=== PATIENT | male | born 1940 | race Caucasian/White ===

== ENCOUNTER → 2020-06-12 | Outpatient (CLI) | payer MEDICARE ==
[~2020-06-12] MED LIST: ASPIRIN81 MG PO; CEFUROXIME250 MG PO; COLACE 100MG C100 MG PO; COZAAR50 MG PO; ELIQUIS 5 MG TAB5 MG PO; ELIQUIS5 MG PO; FLOMAX 0.4 MG0.4 MG PO; LEVAQUIN500 MG PO; LISINOPRIL2.5 MG PO; PRAVASTATIN SOD10 MG PO; RYTHMOL SR225 MG PO; SYNTHROID 125125 MCG PO; TYLENOL WITH C1 EACH PO; ZOLOFT100 MG PO
== END ==
LOC: KOH-I 16:22
DX: R05 Cough (principal); R06.00 Dyspnea, unspecified; J98.11 Atelectasis
CPT/HCPCS: 71046

== ENCOUNTER 2020-06-27 15:52 | Emergency (ER) | payer MEDICARE ==
[2020-06-27 16:48] LABS: HEMOGLOBIN 17.2 gm/dl (14.0-17.5); RED BLOOD COUNT 4.86 M/UL (4.20-5.50); WHITE BLOOD COUNT 12.2 K/UL (4.5-11.0)
[2020-06-27 17:12] LABS: BUN/CREATININE RATIO 17 (0-10)
== END 2020-06-27 22:30 | disposition home or self-care (01) ==
LOC: ER1 15:52
PROVIDERS: Emergency Medicine
DX: I20.8 Other forms of angina pectoris (principal); I10 Essential (primary) hypertension; Z87.891 Personal history of nicotine dependence; I48.91 Unspecified atrial fibrillation; Z20.822 Contact with and (suspected) exposure to COVID-19
CPT/HCPCS: 80053; 82550; 82553; 83690; 83735; 83874; 84100; 84484; 85025; 85610; 85730; 93005; 99284; Q9967; U0002

== ENCOUNTER → 2020-10-18 | Outpatient (CLI) | payer MEDICARE | LOC: HEART 5 10-16 09:00 | DX: R07.9 Chest pain, unspecified (principal); R94.39 Abnormal result of other cardiovascular function study | CPT/HCPCS: 78452; A9502; J2785 ==

== ENCOUNTER 2021-04-19 11:15 | Inpatient (IN) | payer MEDICARE ==
[~2021-04-19] VITALS: Ht 182.9 cm; Wt 117.0 kg
[~2021-04-19 11:15] MED LIST changes: -SYNTHROID 125125 MCG PO; +SYNTHROID150 MCG PO
[2021-04-19 12:08] LABS: HEMOGLOBIN 16.5 gm/dl (14.0-17.5); RED BLOOD COUNT 5.02 M/UL (4.20-5.50); WHITE BLOOD COUNT 11.3 K/UL (4.5-11.0)
[2021-04-19 12:36] LABS: BUN/CREATININE RATIO 14 (0-10)
[2021-04-19] MEDS ORDERED: CRESTOR40 MG PO (16:51)
[2021-04-19] MEDS ORDERED: CYCLOBENZAPRINE5 MG PO (16:51)
[2021-04-19] MEDS ORDERED: RELIEF FACTOR PO (16:53)
[2021-04-20 01:56] LABS: RED BLOOD COUNT 4.62 M/UL (4.20-5.50); WHITE BLOOD COUNT 11.7 K/UL (4.5-11.0)
[2021-04-20 02:26] LABS: BUN/CREATININE RATIO 14 (0-10)
[2021-04-21 05:43] LABS: HEMOGLOBIN 15.2 gm/dl (14.0-17.5); RED BLOOD COUNT 4.73 M/UL (4.20-5.50)
[2021-04-21 05:46] LABS: WHITE BLOOD COUNT 8.5 K/UL (4.5-11.0)
[2021-04-21 06:15] LABS: BUN/CREATININE RATIO 14 (0-10)
[2021-04-22 07:02] LABS: BUN/CREATININE RATIO 15 (0-10)
[2021-04-22] MEDS ORDERED: FLORINEF 0.1 M0.1 MG PO (15:20)
== END 2021-04-22 17:14 | disposition home or self-care (01) | DRG 274 ==
LOC: ER1 11:15 → CCU 18:23
PROVIDERS: Emergency Medicine; Physician Assistant; ADMIT Internal Medicine
PROC: B24BZZZ Ultrasonography of Heart with Aorta (ICD-10-PCS; 2021-04-19)
PROC: 4A027FZ Measurement of Cardiac Rhythm, Via Natural or Artificial Opening (ICD-10-PCS; principal; 2021-04-22)
PROC: 4A0274Z Measurement of Cardiac Electrical Activity, Via Natural or Artificial Opening (ICD-10-PCS; 2021-04-22)
DX: I48.0 Paroxysmal atrial fibrillation (principal); Z20.822 Contact with and (suspected) exposure to COVID-19; I10 Essential (primary) hypertension; E66.01 Morbid (severe) obesity due to excess calories; E03.9 Hypothyroidism, unspecified; F10.10 Alcohol abuse, uncomplicated; N40.0 Benign prostatic hyperplasia without lower urinary tract symptoms; I44.0 Atrioventricular block, first degree; E78.5 Hyperlipidemia, unspecified; I49.3 Ventricular premature depolarization; M17.0 Bilateral primary osteoarthritis of knee; I07.1 Rheumatic tricuspid insufficiency; Z86.711 Personal history of pulmonary embolism; Z79.01 Long term (current) use of anticoagulants; Z87.891 Personal history of nicotine dependence; Z95.0 Presence of cardiac pacemaker; Z82.0 Family history of epilepsy and other diseases of the nervous system; Z68.35 Body mass index [BMI] 35.0-35.9, adult
CPT/HCPCS: ECHO; 36415; 36600; 70450; 71045; 80048; 80053; 82550; 82553; 82803; 83605; 83690; 83735; 83880; 84100; 84439; 84443; 84484; 85025; 85610; 85730; 87040; 93005; 93270; 93306; 93620; 93623; 96374; 99152; 99153; 99285; C1730; C1766; J0461; J1644; J2250; J2405; J3010; J3370; J7040; J7050; Q9967; U0002

== ENCOUNTER 2021-04-23 12:19 | Emergency (ER) | payer MEDICARE ==
[~2021-04-23 12:19] MED LIST changes: +CRESTOR40 MG PO; +CYCLOBENZAPRINE5 MG PO; +FLORINEF 0.1 M0.1 MG PO; +RELIEF FACTOR PO
[2021-04-23 14:14] LABS: HEMOGLOBIN 16.9 gm/dl (14.0-17.5); RED BLOOD COUNT 5.15 M/UL (4.20-5.50)
[2021-04-23 14:16] LABS: WHITE BLOOD COUNT 11.6 K/UL (4.5-11.0)
[2021-04-23 14:40] LABS: BUN/CREATININE RATIO 19 (0-10)
== END 2021-04-23 16:30 | disposition home or self-care (01) ==
LOC: ER1 12:19
PROVIDERS: Emergency Medicine
DX: R55 Syncope and collapse (principal); I10 Essential (primary) hypertension; E78.5 Hyperlipidemia, unspecified; Z86.711 Personal history of pulmonary embolism
CPT/HCPCS: 71045; 80053; 82550; 82553; 83690; 83735; 83874; 84100; 84484; 85025; 85610; 85730; 93005; 99284

== ENCOUNTER → 2021-05-01 | Outpatient (CLI) | payer MEDICARE | LOC: CATH 04-29 09:08 → EDSTATUS 10:00 | DX: Z20.822 Contact with and (suspected) exposure to COVID-19 (principal); R55 Syncope and collapse | CPT/HCPCS: U0003 ==

== ENCOUNTER → 2021-08-14 | Outpatient (CLI) | payer MEDICARE | LOC: HEART 5 10:44 | DX: R06.02 Shortness of breath (principal) | CPT/HCPCS: 71046; 94060; 94729 ==

== ENCOUNTER 2021-10-11 11:47 | Inpatient (IN) | payer MEDICARE ==
[~2021-10-11] VITALS: Ht 182.9 cm; Wt 116.6 kg
[2021-10-11 12:12] LABS: HEMOGLOBIN 14.3 gm/dl (14.0-17.5); RED BLOOD COUNT 4.58 M/UL (4.20-5.50)
[2021-10-11 12:37] LABS: BUN/CREATININE RATIO 14 (0-10)
[2021-10-11] MEDS ORDERED: FLUDROCORTISON0.1 MG PO (13:50)
[2021-10-11] MEDS ORDERED: ELIQUIS5 MG PO (13:50)
[2021-10-11] MEDS ORDERED: KENALOG OINT 0.15 GM TOP (13:51)
[2021-10-11] MEDS ORDERED: DOXEPIN HCL25 MG PO (13:51)
[2021-10-11] MEDS ORDERED: FUROSEMIDE20 MG PO (13:52)
[2021-10-11] MEDS ORDERED: SOTALOL80 MG PO (13:52)
[2021-10-11] MEDS ORDERED: NUVIGIL200 MG PO (13:52)
[2021-10-11] MEDS ORDERED: TYLENOL EXTRA500 MG PO (13:52)
--- NOTE | 2021-10-11 16:13 | NUR ---
ATTEMPTED TO REACH DR. LYNNE REGARDING PATIENTS ADMISSION AND HEART RATE 30'S OFFICE STAFF STATED SHE WAS IN ROOM WITH A PATIENT AND WOULD CALL BACK. ELAINE WAS CALLED TO SPEAK TO REGARDING PATIENT AND STATES PATIENT SHOULD BE MOVED TO ICU. REPORT CALLED TO DAVID RENEE AND PATIENT WAS MOVED TO 2119 AT 1610.
[2021-10-12 06:39] LABS: HEMOGLOBIN 13.5 gm/dl (14.0-17.5); RED BLOOD COUNT 4.34 M/UL (4.20-5.50)
[2021-10-12 07:05] LABS: BUN/CREATININE RATIO 13 (0-10)
[2021-10-13 05:02] LABS: WHITE BLOOD COUNT 9.7 K/UL (4.5-11.0)
[2021-10-13 05:05] LABS: HEMOGLOBIN 15.5 gm/dl (14.0-17.5)
[2021-10-13 13:26] LABS: BUN/CREATININE RATIO 11 (0-10)
[2021-10-14 04:48] LABS: HEMOGLOBIN 15.3 gm/dl (14.0-17.5); RED BLOOD COUNT 4.98 M/UL (4.20-5.50); WHITE BLOOD COUNT 10.6 K/UL (4.5-11.0)
[2021-10-14 05:26] LABS: BUN/CREATININE RATIO 13 (0-10)
[2021-10-14] MEDS ORDERED: CLEOCIN HCL300 MG PO (10:34)
[2021-10-14] MEDS ORDERED: LEVOFLOXACIN500 MG PO (10:34)
[2021-10-15 05:06] LABS: HEMOGLOBIN 14.9 gm/dl (14.0-17.5); RED BLOOD COUNT 4.77 M/UL (4.20-5.50); WHITE BLOOD COUNT 12.3 K/UL (4.5-11.0)
[2021-10-15 05:14] LABS: BUN/CREATININE RATIO 16 (0-10)
[2021-10-17 12:50] LABS: HEMOGLOBIN 14.7 gm/dl (14.0-17.5); RED BLOOD COUNT 4.78 M/UL (4.20-5.50)
[2021-10-17 12:52] LABS: WHITE BLOOD COUNT 8.9 K/UL (4.5-11.0)
[2021-10-17 13:20] LABS: BUN/CREATININE RATIO 23 (0-10)
[2021-10-18] MEDS ORDERED: HYDROCODON-ACE1 EAC4 PO (10:50)
[2021-10-18] MEDS ORDERED: NUVIGIL200 MG PO (10:50)
--- NOTE | 2021-10-18 11:28 | NUR ---
REPORT CALLED TO MANDEEP AT [facility] [phone]. IV REMOVED, CATHETER TIP INTACT, PRESSURE, GAUZE AND TAPE APPLIED. PATIENT TOLERATED PROCEDURE WELL.
== END 2021-10-18 13:27 | DRG 244 ==
LOC: ER1 11:47 → CCU 13:47 → CDU 13:47 → PROG CARE 15:44 → CCU 16:11 → MED SURG 4 10-16 14:44
PROVIDERS: Internal Medicine; Internal Medicine Cardiovascular Disease; Nurse Practitioner; ADMIT Family Medicine
PROC: 5A1223Z Performance of Cardiac Pacing, Continuous (ICD-10-PCS; 2021-10-12)
PROC: 0JH606Z Insertion of Pacemaker, Dual Chamber into Chest Subcutaneous Tissue and Fascia, Open Approach (ICD-10-PCS; principal; 2021-10-14)
PROC: 02H60JZ Insertion of Pacemaker Lead into Right Atrium, Open Approach (ICD-10-PCS; 2021-10-14)
PROC: 02HK0JZ Insertion of Pacemaker Lead into Right Ventricle, Open Approach (ICD-10-PCS; 2021-10-14)
DX: I44.2 Atrioventricular block, complete (principal); E66.01 Morbid (severe) obesity due to excess calories; Z20.822 Contact with and (suspected) exposure to COVID-19; I47.1 Supraventricular tachycardia; E78.5 Hyperlipidemia, unspecified; I10 Essential (primary) hypertension; G47.00 Insomnia, unspecified; E03.9 Hypothyroidism, unspecified; F10.10 Alcohol abuse, uncomplicated; G47.419 Narcolepsy without cataplexy; S90.32XA Contusion of left foot, initial encounter; I48.0 Paroxysmal atrial fibrillation; F41.1 Generalized anxiety disorder; M19.90 Unspecified osteoarthritis, unspecified site; R26.9 Unspecified abnormalities of gait and mobility; E78.00 Pure hypercholesterolemia, unspecified; N32.89 Other specified disorders of bladder; R53.81 Other malaise; Z79.01 Long term (current) use of anticoagulants; Z95.0 Presence of cardiac pacemaker; Z86.711 Personal history of pulmonary embolism; Z98.890 Other specified postprocedural states; Z87.891 Personal history of nicotine dependence; Z68.35 Body mass index [BMI] 35.0-35.9, adult
CPT/HCPCS: 33208; 33210; 36415; 71045; 80048; 80053; 81001; 82550; 82553; 83735; 84100; 84132; 84439; 84443; 84484; 85025; 85027; 85610; 85730; 93005; 97110; 97116-GP-CQ; 97161; 97530; 97530-GP-CQ; 99152; 99153; 99285; C1785; C1894; C1898; J0461; J1250; J1644; J2250; J3010; J3370; J7040; J7050; J7070; U0002

== ENCOUNTER 2021-12-15 12:28 | Emergency (ER) | payer MEDICARE ==
[~2021-12-15 12:28] MED LIST changes: +CLEOCIN HCL300 MG PO; +DOXEPIN HCL25 MG PO; +FLUDROCORTISON0.1 MG PO; +FUROSEMIDE20 MG PO; +HYDROCODON-ACE1 EAC4 PO; +KENALOG OINT 0.15 GM TOP; +LEVOFLOXACIN500 MG PO; +NUVIGIL200 MG PO; +SOTALOL80 MG PO; +TYLENOL EXTRA500 MG PO
[2021-12-15 13:20] LABS: HEMOGLOBIN 16.1 gm/dl (14.0-17.5); RED BLOOD COUNT 5.26 M/UL (4.20-5.50); WHITE BLOOD COUNT 10.8 K/UL (4.5-11.0)
[2021-12-15 13:51] LABS: BUN/CREATININE RATIO 12 (0-10)
== END 2021-12-15 16:18 | disposition home or self-care (01) ==
LOC: ER1 12:28
PROVIDERS: Physician Assistant
DX: R55 Syncope and collapse (principal); B34.9 Viral infection, unspecified; I11.9 Hypertensive heart disease without heart failure; E78.5 Hyperlipidemia, unspecified; E07.9 Disorder of thyroid, unspecified; Z95.0 Presence of cardiac pacemaker; Z20.822 Contact with and (suspected) exposure to COVID-19
CPT/HCPCS: 70450; 71045; 80053; 82550; 82553; 84484; 85025; 93005; 99284; U0002